=== PATIENT | female | born 1975 | race African-American/Black ===

== ENCOUNTER 2023-11-23 14:35 | Emergency (ER) | payer OTHER ==
[2023-11-23 15:02] VITALS: RESP 18; BMI 56.9
[2023-11-23] MEDS ORDERED: FLUORESCEIN NA 1 EA STRIP ONE (15:31)
[2023-11-23] MEDS ORDERED: TETRACAINE 0.5% OPHTH SOLN 2 ML BOTTLE ONE (15:31)
[2023-11-23] MEDS: TETRACAINE 0.5% OPHTH SOLN 2 ML BOTTLE OS ONE (15:32)
[2023-11-23] MEDS: FLUORESCEIN NA 1 EA STRIP OS ONE (15:32)
[2023-11-23 18:53] LABS: HIV INTERPRETATION NEGATIVE (NEGATIVE)
[2023-11-23 19:52] VITALS: BP 135/89; PULSE 72; TEMP 98.5
== END 2023-11-23 19:54 | disposition short-term general hospital (02) ==
LOC: JER 14:35
DX: H57.12 Ocular pain, left eye (principal); H40.052 Ocular hypertension, left eye; R42 Dizziness and giddiness
CPT/HCPCS: 36415; 86803; 87389; 93005; 93010; 99285-25